=== PATIENT | male | born 1965 ===

== ENCOUNTER 2022-11-09 00:22 | Emergency (ER) | payer OTHER ==
[2022-11-09] MEDS ORDERED: DIPHTH,PERTUSS(ACELL),TET 0.5 ML DISP.SYRIN IM ONE ×2 (00:37→00:38)
[2022-11-09 00:50] VITALS: BP 127/82; PULSE 88; RESP 16; TEMP 98.4; BMI 36.9
== END 2022-11-09 00:53 | disposition home or self-care (01) ==
LOC: FER 00:22
PROC: 3E0234Z Introduction of Serum, Toxoid and Vaccine into Muscle, Percutaneous Approach (ICD-10-PCS; principal; 2022-11-09)
DX: S71.151A Open bite, right thigh, initial encounter (principal); W54.0XXA Bitten by dog, initial encounter
CPT/HCPCS: 90715; 99283-25